=== PATIENT | female | born 1955 | race Caucasian/White ===

== ENCOUNTER 2016-11-27 11:47 | Inpatient (IN) | payer MEDICARE, OTHER ==
--- NOTE | ~2016-11-27 | DS ---
Unit #: [id number] #: [id number] Patient: RBOERTO ARRIAZA [id number] [facility]. [place], [place] [address] [id number] MR#: [id number] NAME: ROBERTO ARRIAZA ROOM: 337 Age: 60 Sex: F Admission Date: 11/27/2016 : 1955 Discharge Date: 11/29/2016 Attending Physician: Kiana Ayala M.D. Primary Care Physician: Kerwin DumasP.RMaddiN. DISCHARGE SUMMARY DIAGNOSES ON ADMISSION 1. Intractable nausea and vomiting. 2. Hyponatremia. DIAGNOSES ON DISCHARGE 1. Hyponatremia, improved. 2. Intractable nausea and vomiting, resolved. 3. Chronic neck pain. 4. Gastroesophageal reflux disease. LABS AND PROCEDURES DONE The patient's sodium level is 132. Creatinine is 0.5, potassium is 3.7. AST and ALT are within normal limits. WBC 6.5, hemoglobin is 11.5, platelet count is 351. Urine culture revealed mixed growth. HOSPITAL COURSE 60-year-old female presented to [facility] with nausea, vomiting, hyponatremia. Details are as per admission H and P. The patient was treated with IV fluids. The patient responded well to treatment and her sodium level is much improved. Nausea and vomiting is also resolved and patient is tolerating diet. She will be discharged home today. RECOMMENDATIONS ON DISCHARGE 1. CONDITION: Stable. 2. ACTIVITY: As tolerated. MEDICATIONS Medications are: 1. Tylenol 650 mg p.o. q.6 hours p.r.n. 2. Lyrica 150 mg p.o. daily. 3. Claritin 10 mg p.o. daily. 4. Enteric coated aspirin 81 mg p.o. daily. 5. [place] 7.5 mg, one p.o. q.4 hours p.r.n. which is a home medication. 6. Nexium 40 mg p.o. daily. FOLLOWUP The patient is advised to follow up with primary care physician in one week and have a CBC and BMP done. The patient is advised to call primary care physician or go to ER if her condition changes. The patient was also Unit #: [id number] #: [id number] Patient: ROBERTO ARRIAZA encouraged to quit smoking. She is aware of side effects of smoking causing stroke, heart disease but not limiting to pulmonary disability or possible . Dictated by... Lucinda Chauhan TD: 11/29/2016 12:59 JOB #: [id number] DISCHARGE SUMMARY X Kiana Ayala MD X DISCHARGE SUMMARY
--- NOTE | ~2016-11-27 | HP ---
Unit #: [id number] #: [id number] Patient: ROBERTO ARRIAZA [id number] [place], [place] [address] [id number] MR#: [id number] NAME: ROBERTO ARRIAZA ROOM: Age: 60 Sex: F Admission Date: 11/27/2016 : 1955 Attending Physician: Macarena Najera M.D. Primary Care Physician: Bri Prescott A.P.R.N. HISTORY AND PHYSICAL CHIEF COMPLAINT Nausea and vomiting. HISTORY OF PRESENT ILLNESS The patient is a 60-year-old female with a history of chronic hyponatremia, GERD, and chronic neck pain, is admitted for the nausea and vomiting. The patient has had recurrent admissions for similar low sodium in the past with questionable SIADH diagnosis. The patient was admitted last month for similar reasons. The patient complains of nausea and vomiting for the last two days associated with abdominal pain. The patient denies any diuretic taking at this time. The patient was on chlorthalidone in the past, and it was discontinued. The patient is being admitted for the above reasons. PAST MEDICAL HISTORY 1. Gastroesophageal reflux disease. 2. Hyponatremia which appears to be fairly chronic but does worsen with nausea and vomiting. 3. Cervical disc disease with chronic pain. 4. Seasonal allergies. PAST SURGICAL HISTORY 1. Appendectomy. 2. Partial hysterectomy. 3. Right hand surgery. ALLERGIES No known drug allergies. HOME MEDICATIONS 1. Nexium. 2. Lyrica. 3. Hydrocodone and acetaminophen. 4. Aspirin. 5. Loratadine. FAMILY HISTORY Brain cancer and coronary artery disease. SOCIAL HISTORY The patient lives alone. She has smoked a half a pack per day of tobacco since age 19. She does not drink alcohol or any illicit drug abuse. REVIEW OF SYSTEMS Unit #: [id number] #: [id number] Patient: ROBERTO ARRIAZA A 14-point review of systems was performed and only pertinent positive findings are described above. The remaining are negative. PHYSICAL EXAMINATION GENERAL: Patient is lying in bed not in acute distress. VITAL SIGNS: Temperature is 98.7, pulse 92, respiratory rate 18, blood pressure 162/90, and saturating 99% on room air. HEENT: Head atraumatic, normocephalic. Pupils equal, round, and reactive to light and accommodation. Extraocular movements are intact. NECK: Supple. No JVD. LUNGS: Clear to auscultation bilaterally. No rhonchi, no wheezing. HEART: Regular rate and rhythm. ABDOMEN: Soft. Positive bowel sounds. EXTREMITIES: No cyanosis, no clubbing. NEUROLOGIC: Alert, awake, and oriented. No gross focal motor deficit. DIAGNOSTIC STUDIES LABORATORY: Glucose 109, BUN 7, creatinine 0.4, sodium 122, potassium 3.5, chloride 87, bicarb 25, calcium 9.3, total protein 7.5, albumin 4.3, AST 21, ALT 16, and alkaline phosphatase 148. Lipase 33. WBC 7.2, hemoglobin 14.3, hematocrit 42, and platelets 437,000. Urinalysis shows trace leukocyte esterase, urine RBCs 5-10, and urine bacteria 1+. ASSESSMENT 1. Hyponatremia. 2. Nausea and vomiting. 3. Gastroesophageal reflux disease. PLAN Admit the patient to inpatient with telemetry. Continue IV fluids of normal saline at 125 mL/hour for 2 liters. Check urine sodium and urine osmolarity. 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 After checking the osmolarities, will put the patient on fluid restriction. Continue Zofran for nausea and vomiting. Further recommendations will follow. Dictated by Lucinda Valadez TD: 11/27/2016 15:55 JOB #: [id number] HISTORY AND PHYSICAL X X HISTORY AND PHYSICAL
[~2016-11-27 11:47] MED LIST: AMLACTIN400 GM TP; ASPIRIN EC81 M1 PO; ASPIRIN81 M1 PO; ASPIRIN81 M2 PO; BACTRIM DS TABL1 TA2 PO; CHLORTHALIDONE25 M1 PO; CLARITIN10 M2 PO; CLARITIN10 M3 PO; COMBIVENT INH14.7 G1 IH; COMBIVENT RESPIM4 GM INH; COMPAZINE10 M1 PO; ELIMITE60 GM TOP; HYDROCODON-ACE1 EAC9 PO; HYDROCODONE-APA1 T58 PO; HYDROCODONE/APA1 T16 PO; KEFLEX500 M1 PO; KLONOPIN0.5 MG PO; LIPITOR40 MG PO; LISINOPRIL10 MG PO; LORTAB 7.5-3251 EACH PO; LYRICA PO; LYRICA75 MG PO; MELOXICAM15 MG PO; NEXIUM PO; PARAFON FORTE500 MG PO; SODIUM CHLORIDE PO; TAGAMET300 MG PO; VOLTAREN50 MG PO; [UNRECOGNIZED DRUG - OTHER] TOP
[2016-11-27 11:58] LABS: BASOPHIL% 0.3 % (0-2.5); EOSINOPHIL% 0.6 % (0.0-7.0); HEMOGLOBIN 14.3 gm/dL (12.0-16.0); MEAN CELL VOLUME 82.7 FL (83-96); MEAN CORPUSCULAR HEMOGLOBIN 28.1 PG (28-34); MEAN PLATELET VOLUME 7.5 FL (6.5-11.5); MONOCYTE# 0.7 X10e3 (0-1.0); MONOCYTE% 10.4 % (3.0-12.0); NEUTROPHIL# 4.4 X10e3 (1.5-7.1); NEUTROPHIL% 60.7 % (40-75); PLATELET COUNT 437 X10e3 (140-420); RED BLOOD COUNT 5.07 X10e (3.90-5.30); WHITE BLOOD COUNT 7.2 X10e3 (4.0-10.5)
[2016-11-27 11:59] LABS: DIFF IND NO
[2016-11-27 12:48] LABS: ALBUMIN SERUM 4.3 g/dL (3.5-5.0); ALKALINE PHOSPHATASE 148 U/L (32-92); ALT (SGPT) 16 U/L (10-40); AST (SGOT) 21 U/L (10-42); BILIRUBIN, DIRECT 0.1 mg/dL (0.0-0.2); BILIRUBIN,INDIRECT 1.1 mg/dL (0.0-0.9); BILIRUBIN,TOTAL 1.2 mg/dL (0.2-2.0); BLOOD UREA NITROGEN 7 mg/dL (9-23); CALCIUM SERUM 9.3 mg/dL (8.4-10.2); CARBON DIOXIDE 25 mmol/L (22-31); CHLORIDE 87 mmol/L (100-111); CREATININE SERUM 0.4 mg/dL (0.6-1.4); GLOM FILT RATE Estimated ABOVE60 mL/min (>60); GLUCOSE FASTING 109 mg/dL (70-110); LIPASE 33 U/L (22-51); POTASSIUM 3.5 mmol/L (3.5-5.1); PROTEIN TOTAL SERUM 7.5 g/dL (6.0-8.3)
[2016-11-27 12:50] LABS: SODIUM 122 mmol/L (135-145)
[2016-11-27 13:09] LABS: URINE SOURCE CATH
[2016-11-27 13:13] LABS: URINE APPEARANCE CLEAR; URINE BILIRUBIN NEG (NEG); URINE BLOOD TRACE (NEG); URINE COLOR YELLOW; URINE GLUCOSE NEG (NEG); URINE KETONE NEG (NEG); URINE LEUKOCYTE ESTERASE TRACE (NEG); URINE NITRATE NEG (NEG); URINE PH 6.5 (5-8); URINE PROTEIN NEG (NEG); URINE SPECIFIC GRAVITY 1.015 (1.003-1.035)
[2016-11-27 13:15] LABS: CULTURE INDICATED? YES; URINE BACTERIA AUWI 1+ (NEGATIVE); URINE SQUAMOUS EPITHELIAL CELL MOD /[HPF]; UWBCS1 AUWI 0-2 (0-5)
[2016-11-27] MEDS ORDERED: NEXIUM PO ×2 (14:08→14:12)
[2016-11-27] MEDS ORDERED: LYRICA100 MG PO (14:09)
[2016-11-27] MEDS ORDERED: LYRICA PO (14:12)
[2016-11-27] MEDS ORDERED: ANEXSIA 7.5/3251 TA1 PO (14:18)
[2016-11-27] MEDS ORDERED: ASPIRIN81 MG PO (14:18)
[2016-11-27] MEDS ORDERED: CLARITIN10 M2 PO (14:19)
[2016-11-27 15:39] LABS: SODIUM URINE RANDOM 34 mmol/L
[2016-11-27 16:05] LABS: OSMOLALITY,URINE 410 mOsmo/kg (250-900)
[2016-11-28 05:38] LABS: HEMATOCRIT 35.3 % (35.0-45.0); MEAN CELL VOLUME 83.6 FL (83-96); MEAN CORPUSCULAR HGB CONC 33.5 g/dL (30-36); MEAN PLATELET VOLUME 7.9 FL (6.5-11.5); RED BLOOD COUNT 4.23 X10e (3.90-5.30); RED CELL DISTRIBUTION WIDTH 13.5 % (11.0-15.5)
[2016-11-28 05:41] LABS: HEMOGLOBIN 11.8 gm/dL (12.0-16.0)
[2016-11-28 06:33] LABS: BLOOD UREA NITROGEN 7 mg/dL (9-23); CALCIUM SERUM 8.7 mg/dL (8.4-10.2); CARBON DIOXIDE 25 mmol/L (22-31); CHLORIDE 96 mmol/L (100-111); CREATININE SERUM 0.5 mg/dL (0.6-1.4); GLOM FILT RATE Estimated ABOVE60 mL/min (>60); GLUCOSE FASTING 86 mg/dL (70-110); POTASSIUM 3.6 mmol/L (3.5-5.1); SODIUM 128 mmol/L (135-145)
[2016-11-29 06:26] LABS: HEMATOCRIT 34.6 % (35.0-45.0); HEMOGLOBIN 11.5 gm/dL (12.0-16.0); MEAN CELL VOLUME 84.2 FL (83-96); MEAN CORPUSCULAR HEMOGLOBIN 27.8 PG (28-34); MEAN CORPUSCULAR HGB CONC 33.1 g/dL (30-36); MEAN PLATELET VOLUME 7.9 FL (6.5-11.5); RED BLOOD COUNT 4.11 X10e (3.90-5.30); RED CELL DISTRIBUTION WIDTH 13.6 % (11.0-15.5); WHITE BLOOD COUNT 6.5 X10e3 (4.0-10.5)
[2016-11-29 07:23] LABS: CALCIUM SERUM 8.8 mg/dL (8.4-10.2); CARBON DIOXIDE 25 mmol/L (22-31); CHLORIDE 99 mmol/L (100-111); CREATININE SERUM 0.5 mg/dL (0.6-1.4); GLOM FILT RATE Estimated ABOVE60 mL/min (>60); GLUCOSE FASTING 87 mg/dL (70-110); POTASSIUM 3.7 mmol/L (3.5-5.1); SODIUM 132 mmol/L (135-145)
[2016-11-29 07:24] LABS: BLOOD UREA NITROGEN <5 mg/dL (9-23)
[2016-11-29] MEDS ORDERED: ACETAMINOPHEN650 M1 PO (13:38)
== END 2016-11-29 14:25 | disposition home or self-care (01) | DRG 392 ==
LOC: CED 11:47 → CEDOF 14:31 → C3A PCU 22:44
PROVIDERS: Emergency Medicine; Internal Medicine
DX: R11.2 Nausea with vomiting, unspecified (principal); E87.1 Hypo-osmolality and hyponatremia; F17.210 Nicotine dependence, cigarettes, uncomplicated; G89.29 Other chronic pain; K21.9 Gastro-esophageal reflux disease without esophagitis; M50.30 Other cervical disc degeneration, unspecified cervical region; Z90.711 Acquired absence of uterus with remaining cervical stump; Z79.82 Long term (current) use of aspirin
CPT/HCPCS: 36415; 80048; 80076; 81003; 83690; 83935; 84300; 85025; 85027; 87086; 96374; 96375; 99285; J1650; J2270; J2405